=== PATIENT | male | born 1995 | race Two or more races ===

== ENCOUNTER 2020-04-29 12:23 | Emergency (ER) | payer OTHER ==
[2020-04-29 12:45] VITALS: BP 132/88; PULSE 89; TEMP 98.6; BMI 25.8
[2020-04-29] MEDS ORDERED: DEXAMETHASONE SOD PHOSPHATE 10 MG/1 ML VIAL IM ONE (12:51)
[2020-04-29] MEDS ORDERED: DEXAMETHASONE SOD PHOSPHATE 10 MG/1 ML VIAL ONE (13:03)
== END 2020-04-29 14:15 | disposition home or self-care (01) ==
LOC: JER 12:23
PROC: 3E033NZ Introduction of Analgesics, Hypnotics, Sedatives into Peripheral Vein, Percutaneous Approach (ICD-10-PCS; principal; 2020-04-29)
DX: R07.0 Pain in throat (principal)
CPT/HCPCS: 87880; 99284-25; C9803; J1100; U0003